=== PATIENT | female | born 1940 | race Two or more races ===

== ENCOUNTER 2018-01-25 18:37 | Emergency (ER) | END 2018-01-25 23:00 | disposition home or self-care (01) ==

== ENCOUNTER 2019-02-09 10:28 | Emergency (ER) | payer MEDICARE, OTHER ==
[~2019-02-09] VITALS: Ht 152.4 cm; Wt 52.4 kg
[~2019-02-09 10:28] MED LIST: AMLO-145 PO; ASPI-535 PO; ASPI-903 PO; ATOR10TA65 PO; CEPH500C PO; CHOL100012 PO; CHOLESTEROL MED PO; CYCL5TAB PO; IBUP-1542 PO; LOSA100T15 PO; LOSARTAN PO; MENT1LOZ PO; NEBI5TAB9 PO
[2019-02-09 10:32] VITALS: Ht 152.4 cm; Wt 52.4 kg
--- NOTE | 2019-02-09 11:32 | ERD ---
ER Documentation Chief Complaint Chief Complaint HEARN HPI The patient is a 78-year-old female, presenting to the ER with multiple compl aints. She complains of right facial pressure for 2 weeks, received valproic medication for pain by her physician, she did not feel well after she took it therefore she only took it once. She was prescribed Keflex for possible sinusitis 2 days ago and she is taking it with minimal response. She complains of diffuse headache for the last day, denies similar symptoms previously. She denies dizziness, fever, chill, neck pain, chest pain, dyspnea, abdominal pain, vomiting, dysuria, diarrhea. She smokes a pack a week, denies drinking Past medical history: Hypertension, dyslipidemia Past surgical history: Right carotid endarterectomy, hysterectomy ROS All systems reviewed and are negative except as per history of present illness. Medications Home Meds Active Scripts Ibuprofen* (Motrin*) 600 Mg Tab, 600 MG PO Q6H PRN for PAIN AND OR ELEVATED TEMP, #20 TAB Prov:DUNCAN PARTIDA MD 02/09/19 Reported Medications Nebivolol* (Bystolic*) 5 Mg Tab, 5 MG PO QHS, #30 TAB 02/09/19 Cyclobenzaprine Hcl* (Cyclobenzaprine Hcl*) 5 Mg Tablet, 5 MG PO QHS PRN for MUSCLE SPASMS, #60 TAB 02/09/19 Amlodipine Besylate* (Amlodipine Besylate*) 5 Mg Tablet, 5 MG PO QHS, #30 TAB 02/09/19 Atorvastatin Calcium (Atorvastatin Calcium) 10 Mg Tablet, 10 MG PO QHS, #30 TAB 02/09/19 Aspirin* (Aspirin* Chew) 81 Mg Tab.chew, 81 MG PO DAILY, TAB.CHEW 02/09/19 Losartan Potassium* (Losartan Potassium*) 100 Mg Tablet, 100 MG PO DAILY, TAB 02/09/19 Cephalexin* (Cephalexin*) 500 Mg Capsule, 500 MG PO TID, #21 CAP 02/09/19 Discontinued Reported Medications Cholecalciferol (Vitamin D3) 1,000 Unit Tab.chew, 2000 UNITS PO DAILY 02/15/11 Aspirin Ec (Aspir 81) 81 Mg Tablet.dr, 81 MG PO DAILY 02/15/11 [Cholesterol Med] No Conflict Check, 1 TAB PO Q HS 02/15/11 [Losartan] No Conflict Check, 1 TAB PO DAILY 02/15/11 Menthol (Vicks Cough Drops) 1 Alla Lozenge, 1 ALLA PO Q4 02/15/11 Allergies Allergies: Coded Allergies: No Known Drug Allergies (Unverified Allergy, Unknown, 02/09/19) PMhx/Soc History of Surgery: Yes (Hysterectomy,L Breast Cyst Removed) Anesthesia Reaction: No Hx Neurological Disorder: Yes (Intractable HEARN) Hx Respiratory Disorders: No Hx Cardiac Disorders: Yes (HTN,ACS,Hyperlipidemia) Hx Psychiatric Problems: No Hx Miscellaneous Medical Probl: No Hx Alcohol Use: No Hx Substance Use: No Hx Tobacco Use: Yes (1 stick/3 days) Smoking Status: Current every day smoker Physical Exam Vitals Vital Signs Date Temp Pulse Resp B/P (MAP) Pulse Ox O2 O2 Flow FiO2 Time Delivery Rate 02/09/19 62 20 124/64 100 Room Air 14:14 (84) 02/09/19 58 19 119/58 100 Room Air 12:06 (78) 02/09/19 98.7 71 18 151/69 99 10:32 (96) Physical Exam Const: No acute distress. Head: Atraumatic. Eyes: Normal Conjunctiva. ENT: Normal External Ears, Nose and Mouth. Neck: Full range of motion. No meningismus. Resp: Clear to auscultation bilaterally. Cardio: Regular rate and rhythm. Abd: Soft, non distended, normal bowel sounds, non tender. Skin: No petechiae or rashes. Back: No midline or flank tenderness. Ext: No cyanosis, or edema. Neur: Awake and alert. No focal deficit Psych: Normal Mood and Affect. Result Diagram: 02/09/19 1349 02/09/19 1203 Results 24 hrs Laboratory Tests Test 02/09/19 12:03 02/09/19 13:49 White Blood Count 8.7 10^3/ul 8.6 10^3/ul Red Blood Count 4.48 10^6/ul 4.33 10^6/ul Hemoglobin 12.4 g/dl 12.0 g/dl Hematocrit 39.4 % 38.5 % Mean Corpuscular Volume 87.9 fl 88.9 fl Mean Corpuscular Hemoglobin 27.7 pg 27.7 pg Mean Corpuscular Hemoglobin Concent 31.5 g/dl 31.2 g/dl Red Cell Distribution Width 12.9 % 12.9 % Platelet Count 35 10^3/UL 193 10^3/UL Mean Platelet Volume 11.8 fl 9.9 fl Immature Granulocytes % 0.300 % 0.400 % Neutrophils % % 70.6 % Segmented Neutrophils % (Manual) 69 % Band Neutrophils % (Manual) 1 % Lymphocytes % % 15.9 % Lymphocytes % (Manual) 20 % Monocytes % % 10.2 % Monocytes % (Manual) 8 % Eosinophils % % 2.2 % Eosinophils % (Manual) 1 % Basophils % % 0.7 % Myelocytes % (Manual) 1 % Nucleated Red Blood Cells % 0.0 /100WBC 0.0 /100WBC Immature Granulocytes # 0.030 10^3/ul 0.030 10^3/ul Neutrophils # 10^3/ul 6.0 10^3/ul Neutrophils # (Manual) 6.0 10^3/ul Band Neutrophils # 0.0 10^3/ul Lymphocytes (Manual) 1.7 10^3/ul Lymphocytes # 10^3/ul 1.4 10^3/ul Monocytes # 10^3/ul 0.9 10^3/ul Monocytes # (Manual) 0.6 10^3/ul Eosinophils # 10^3/ul 0.2 10^3/ul Basophils # 10^3/ul 0.1 10^3/ul Myelocytes # 0.0 10^3/ul Nucleated Red Blood Cells # 10^3/ul 0.0 10^3/ul Platelet Estimate DECREASED Platelet Morphology Comment @See below Poikilocytosis 1+ Prothrombin Time 13.7 Sec Prothrombin Time Ratio 1.1 INR International Normalized Ratio 1.04 Activated Partial Thromboplast Time 34.4 Sec Sodium Level 140 mmol/L Potassium Level 4.7 mmol/L Chloride Level 106 mmol/L Carbon Dioxide Level 28 mmol/L Anion Gap 6 Blood Urea Nitrogen 22 mg/dl Creatinine 0.90 mg/dl Est Glomerular Filtrat Rate mL/min mL/min Glucose Level 94 mg/dl Calcium Level 8.7 mg/dl [place] [id number] Radiology Main Line: [phone] DIAGNOSTIC IMAGING REPORT Patient: JAYLAN DAY : 1940 Age: 78 Sex: F MR #: [id number] DOS: 02/09/19 1133 Ordering MD: DUNCAN PARTIDA MD Location: E/R Room/Bed: PROCEDURE: CT Brain without contrast. CLINICAL INDICATION: Headache, altered mental status TECHNIQUE: A CT of the brain was performed on a multi-slice CT scanner utilizing axial imaging from the skull base through the vertex without IV contrast. Multiplanar reformatted images were made. Images were reviewed on a PACS workstation. The CTDIvol is 39.6 mGy and the DLP is 634.2 mGycm. One or more of the following dose reduction techniques were used: Automated exposure control. Adjustment of the mA and/or kV according to patient's size. Use of iterative reconstruction technique. DICOM images are available. COMPARISON: 02/13/2012 FINDINGS: The sulcal gyral pattern is unremarkable without evidence of effacement. The sorensen-white matter differentiation is intact. There is age compatible cortical atrophy with proportional dilatation of the lateral ventricles. Moderate to severe deep white matter ischemic changes are seen. No masses, edema or shift is identified. There are no intraparenchymal or extraaxial fluid collections. The visualized paranasal sinuses and mastoid air cells are well-aerated. The skull base and calvarium are intact. IMPRESSION: 1. No acute intracranial abnormalities are identified. 2. There is age compatible cortical atrophy with proportional dilatation of the lateral ventricles. 3. Moderate to severe deep white matter ischemic changes are again seen. RPTAT:AAJJ Physician Susy Date Time Electronically viewed and signed by Physician Susy on 02/09/2019 12:48 MC/ CC: DUNCAN PARTIDA MD [phone] MEDICAL MAKING DECISION: The patient is a 78-year-old female, presenting with acute headache of unclear etiology, is above outpatient follow-up The differential diagnoses considered include but are not limited to subarachnoid hemorrhage, occult trauma, CVA, meningitis, encephalitis, hypertension, tension, migraine, cluster, narcotic withdrawal, cervical spine disease. Departure Diagnosis: Primary Impression: Cephalgia Condition: Good Comments She was discharged with Motrin I discussed the findings with the patient. I advised the patient to follow-up with the primary physician in about 1-2 days, sooner if needed and return if any concern. Disclaimer: Inadvertent spelling and grammatical errors are likely due to EHR/dictation software use and do not reflect on the overall quality of patient care. Also, please note that the electronic time recorded on this note does not necessarily reflect the actual time of the patient encounter. DUNCAN PARTIDA MD Feb 09, 2019 11:32
[2019-02-09 14:14] VITALS: BP 124/64; PULSE 62; RESP 20
== END 2019-02-09 14:16 | disposition home or self-care (01) ==
LOC: E/R 10:28
DX: R51 Headache (principal); I10 Essential (primary) hypertension; F17.210 Nicotine dependence, cigarettes, uncomplicated; R40.2142 Coma scale, eyes open, spontaneous, at arrival to emergency department; R40.2362 Coma scale, best motor response, obeys commands, at arrival to emergency department; R40.2252 Coma scale, best verbal response, oriented, at arrival to emergency department; Z79.82 Long term (current) use of aspirin
CPT/HCPCS: 36415; 70450; 80048; 85025; 85610; 85730